=== PATIENT | female | born 1980 | race Hispanic/Latino ===

== ENCOUNTER 2022-12-19 14:47 | Emergency (ER) | payer OTHER ==
[~2022-12-19] VITALS: Ht 175.3 cm; Wt 106.5 kg
[2022-12-19] MEDS ORDERED: PREDNISONE10 MG PO ×2 (18:28→18:29)
[2022-12-19 18:57] VITALS: BP 128/87
== END 2022-12-19 18:57 | disposition home or self-care (01) | DRG 563 ==
LOC: ED 14:47
DX: S39.012A Strain of muscle, fascia and tendon of lower back, initial encounter (principal); S39.011A Strain of muscle, fascia and tendon of abdomen, initial encounter; W01.0XXA Fall on same level from slipping, tripping and stumbling without subsequent striking against object, initial encounter; Y92.89 Other specified places as the place of occurrence of the external cause; Y99.0 Civilian activity done for income or pay